=== PATIENT | male | born 1950 | race African-American/Black ===

== ENCOUNTER → 2016-08-05 | Outpatient (CLI) | payer MEDICARE, BC ==
[2015-05-12 15:09] VITALS: BP 127/59
[~2016-08-05] MED LIST: ASPI325T4 PO; FELO10TA PO; LISI40TA PO; PANT40TA3 PO; PRED20TA PO; SOFO400T PO; TAMS0.4C97 PO
--- NOTE | 2016-08-05 16:10 | CARD ---
APPROVED REPORT EXAM: Two-dimensional and M-mode echocardiogram with Doppler and color Doppler. Other Information Quality : Average Rhythm : NSR INDICATION Dyspnea Cardiac Disease: CAD 2D DIMENSIONS RVDd2.9 (2.9-3.5cm)Left Atrium(2D)4.9 (1.6-4.0cm) IVSd1.4 (0.7-1.1cm)Aortic Root(2D)3.0 (2.0-3.7cm) LVDd4.7 (3.9-5.9cm)LVOT Diameter2.1 (1.8-2.4cm) PWd1.4 (0.7-1.1cm)LVDs3.2 (2.5-4.0cm) FS (%) 32.4 %SV61.3 ml LVEF(%)60.0 (>50%) Aortic Valve AoV Peak Rush.125.9cm/sAoV VTI22.0cm AO Peak GR.6.3mmHgLVOT Peak Rush.98.8cm/s LVOT VTI 19.88cmAO Mean GR.4mmHg JAVI (VMAX)2.58wb4EFY (VTI)3.27cm2 Mitral Valve MV E Lmaowpmj35.5cm/sMV DECEL QUGL785gn MV A Wxiazefi58.7cm/sMV E Mean Gr.1mmHg MV [id number]/A Ratio0.9 MV A Fijytiaq095xcBFD (PHT)2.98cm2 TDI E/Lateral E'7.3E/Medial E'7.8 Pulmonary Valve PV Peak Jqiynqit796.9cm/sPV Peak Grad.6mmHg RVOT VTI16.8cm Tricuspid Valve TR P. Exqkvduu094mc/sRAP PPTEWNNV5nvXc TR Peak Gr.12mbBbXHQQ18igMu LEFT VENTRICLE The left ventricle is normal size. There is mild concentric left ventricular hypertrophy. Left ventri greta systolic function is normal. The Ejection Fraction is 60%. There is normal LV segmental wall caio on. Tissue Doppler imaging reveals mild left ventricular diastolic dysfunction. Transmitral Doppler f low pattern is Grade I-abnormal relaxation pattern. RIGHT VENTRICLE The right ventricle is normal size. The right ventricular systolic function is normal. ATRIA The left atrium is mildly dilated. The right atrium size is normal. The interatrial septum is intact with no evidence for an atrial septal defect or patent foramen ovale as noted on 2-D or Doppler imagi ng. AORTIC VALVE The aortic valve is normal in structure and function. The aortic valve is trileaflet. Doppler and Col or Flow revealed no significant aortic regurgitation. There is no significant aortic valvular stenosi s. MITRAL VALVE The mitral valve is normal in structure and function. There is no mitral valve stenosis. Doppler and Color Flow revealed no mitral valve regurgitation noted. TRICUSPID VALVE The tricuspid valve is normal in structure. Doppler and Color Flow revealed mild tricuspid regurgitat ion. The PA pressure was estimated at 40 mmHg. There is no tricuspid valve stenosis. PULMONIC VALVE The pulmonic valve is not well visualized. Doppler and Color Flow revealed mild to moderate pulmonic valvular regurgitation. There is no pulmonic valvular stenosis. GREAT VESSELS The aortic root is normal in size. The IVC is dilated and collapses >50% with inspiration. PERICARDIAL EFFUSION There is no evidence of significant pericardial effusion. Critical Notification Critical Value: No <Conclusion> Left ventricle systolic function is normal. The Ejection Fraction is 60%. Tissue Doppler imaging reveals mild left ventricular diastolic dysfunction. Transmitral Doppler flow pattern is Grade I-abnormal relaxation pattern. There is mild concentric left ventricular hypertrophy. The left atrium is mildly dilated. The right atrium size is normal. The aortic valve is normal in structure and function. The aortic valve is trileaflet. The mitral valve is normal in structure and function. Doppler and Color Flow revealed mild tricuspid regurgitation. The PA pressure was estimated at 40 mmHg. Doppler and Color Flow revealed mild to moderate pulmonic valvular regurgitation. There is no evidence of significant pericardial effusion.
== END | disposition home or self-care (01) ==
LOC: ECHO 14:04
PROVIDERS: ATTEND Internal Medicine Cardiovascular Disease
DX: I25.10 Atherosclerotic heart disease of native coronary artery without angina pectoris (principal); Z95.1 Presence of aortocoronary bypass graft; R06.02 Shortness of breath
CPT/HCPCS: 93306

== ENCOUNTER → 2016-09-04 | Outpatient (CLI) | payer MEDICARE, BC ==
[2015-05-12 15:09] VITALS: BP 127/59
--- NOTE | 2016-09-04 14:48 | RAD ---
Indication nonhealing wound. Assess arterial vasculature. Grayscale color Doppler and spectral imaging was performed targeted to the left leg. There is a normal triphasic waveform in the common femoral artery. A similar waveform is seen in the deep femoral artery. Normal triphasic waveform continues on through the superficial femoral artery into the popliteal artery. The posterior tibial artery also has a normal triphasic waveform as does the peroneal. Anterior tibial artery is also triphasic as is the dorsal pedal artery. IMPRESSION: No evidence of significant arterial stenosis in the major vessels of the left leg
== END | disposition home or self-care (01) ==
LOC: US 13:16
PROVIDERS: ATTEND Family Medicine
DX: L97.929 Non-pressure chronic ulcer of unspecified part of left lower leg with unspecified severity (principal); M79.662 Pain in left lower leg
CPT/HCPCS: 93926

== ENCOUNTER → 2017-03-19 | Outpatient (CLI) | payer MEDICARE, BC ==
[2015-05-12 15:09] VITALS: BP 127/59
[~2017-03-19] MED LIST changes: -ASPI325T4 PO; +ASPI325T8 PO
--- NOTE | 2017-03-19 15:28 | RAD ---
Maxillofacial CT Indication: Recurrent sinusitis Technique: CT of the maxillofacial Bones without IV contrast with multiplanar reformats Comparison: None Findings: The frontal sinuses, ethmoid air cells and sphenoid sinuses show no evidence of mucoperiosteal thickening or polyps. Mucus retention cyst or polyp seen within bilateral maxillary sinus. No bony erosions. The nasal septum is midline. No acute fracture or dislocation. No suspicious bony lesions. Mild bilateral anterior subluxation of the TMJs. Visualized noncontrast appearance of the brain is within normal limits. The orbits, lenses and extra ocular muscles are within normal limits. The oropharynx and nasopharynx are within normal limits. Impression: Mucous retention cyst or polyp within bilateral maxillary sinuses. Rest of the paranasal sinuses are clear. PQRS Compliance Statement: One or more of the following individualized dose reduction techniques were utilized for this examination: 1. Automated exposure control 2. Adjustment of the mA and/or kV according to patient size 3. Use of iterative reconstruction technique
== END | disposition home or self-care (01) ==
LOC: CT 12:20
PROVIDERS: ATTEND Otolaryngology
DX: J34.1 Cyst and mucocele of nose and nasal sinus (principal); J01.91 Acute recurrent sinusitis, unspecified
CPT/HCPCS: 70486